=== PATIENT | female | born 1965 | race Caucasian/White ===

== ENCOUNTER → 2016-06-02 | Day surgery (SDC) | payer OTHER ==
[~2016-06-02] MED LIST: ANTIOXIDANT PO; ASPIRIN PO; B COMPLEX1 CA1 PO; B-COMPLEX PO; BALANCED B-501 CAP PO; BENADRYL PO; BENADRYL25 M3 PO; BENTYL20 MG PO; BUSPAR15 M1 DOB; CALCIUM 500 + D1 TAB PO; CALCIUM 500 +1 EAC2 PO; CERTAGEN PO; CLARITIN10 M2 PO; CLARITIN10 M3 PO; COD LIVER OIL; FISH OIL 1,0001 CAP PO; FLAX SEED OIL1000 M1 PO; FLAX SEED OIL1000 MG PO; FLAXSEED OIL; FLAXSEED OIL1000 M1 PO; GLUCOSAMINE CHO1 CA2 PO; GLUCOSAMINE CHOND; MULTI VITAMIN1 EACH PO; MULTI-VITAMIN1 EAC1 PO; MULTIVITAMINS W1 TAB PO; NEXIUM 24HR20 MG PO; NEXIUM PO; PREVACID PO; PRILOSEC PO; VIT B-12 PO; VITAMIN B122500 MCG PO; VITAMIN C PO; ZINC50 M1 PO; ZOLOFT PO; ZOLOFT100 MG PO
--- NOTE | ~2016-06-02 | OR ---
Unit #: [id number] #: [id number] Patient: MARA WEIR [id number] [address] [address] [id number] O MR#: [id number] NAME: MARA WEIR ROOM: Date of Procedure: 06/02/2016 Admission Date: 06/02/2016 Surgeon: Kit Ureña M.D. : 1965 Attending Physician: Kit Ureña M.D. Primary Care Physician: Carlos Quinones M.D. OPERATIVE REPORT PROCEDURE PERFORMED Esophagogastroduodenoscopy with biopsies. INDICATIONS FOR PROCEDURE The patient with chronic GERD symptoms, history of Osman esophagus, symptoms have been worsening lately. MEDICATIONS Monitored anesthesia. POSTOPERATIVE FINDINGS 1. Hiatal hernia along with significant esophagitis, multiple ulcers as well as small segment Osman esophagus. Biopsies taken. 2. Multiple Alejandro ulcers seen in the hiatal hernia sac. 3. Chronic gastritis, biopsies taken. 4. Large submucosal nodule in the gastric antrum, freely mobile, could be GIST. PLAN 1. PPI therapy. 2. Avoid NSAIDs. 3. EUS to be planned. DESCRIPTION OF PROCEDURE The patient was explained of the procedure, risks, and benefits along with the risks and benefits of anesthesia. She was brought to the endoscopy room. Propofol anesthesia was given. Bite block was placed. The scope was passed down the mouth into the esophagus, stomach, duodenum, and distal duodenum. Findings as described. Biopsies taken. Gently, I pulled the scope out of the patient's mouth. She tolerated it well. Dictated by... Rissa Ross/angelo TD: 06/02/2016 23:04 JOB #: [id number] Unit #: [id number] #: [id number] Patient: MARA WEIR OPERATIVE REPORT X Kit Ureña MD PROCEDURE OPERATIVE NOTE
== END | disposition home or self-care (01) ==
LOC: COPS 07:47
DX: K29.50 Unspecified chronic gastritis without bleeding (principal); K21.0 Gastro-esophageal reflux disease with esophagitis; K44.9 Diaphragmatic hernia without obstruction or gangrene; K22.70 Barrett's esophagus without dysplasia; J45.909 Unspecified asthma, uncomplicated; Z98.41 Cataract extraction status, right eye; Z98.42 Cataract extraction status, left eye; Z98.51 Tubal ligation status; Z79.899 Other long term (current) drug therapy
CPT/HCPCS: 88305; 88312

== ENCOUNTER → 2016-08-02 | Outpatient (CLI) | payer OTHER ==
--- NOTE | ~2016-08-02 | US5 ---
[facility] A Service of [facility] RADIOLOGY TEXT RESULTS PATIENT: MARA WEIR LOCATION: [facility] : 61 UNIT #: [id number] AGE: [address]: SYLVIA GRACE APRN SEX: F ORDER DR: [id number] [address] [address] [id number] O MR#: [id number] Acc #: [id number] NAME: MARA WEIR. : 1965 SEX: F STUDY DATE/TIME: 08/02/2016 11:30 UNIT: SG ROOM: STUDY DESCRIPTION: US Abdominal Complete Attending Physician: Sylvia Grace Aprn Referring Physician: Sylvia Grace Aprn Ordering Physician: Sylvia Grace Aprn Primary Care Physician: Kaitlynn Lynn M.D. MEDICAL IMAGING REPORT This report is preliminary unless electronic signature is present. EXAM Abdominal ultrasound. INDICATION Abdominal pain for 2 weeks. TECHNIQUE Weeks-scale, color Doppler, and spectral Doppler waveform analysis was performed through the abdomen. FINDINGS Visualized portions of the pancreas appear normal. Liver is homogeneous in echotexture. No focal hepatic lesions are seen and it measures within normal size limits. There is no intra or extrahepatic biliary dilatation. Main portal vein is patent with hepatopetal flow. Gallbladder does not contain any stones or sludge and there is no gallbladder wall thickening or pericholecystic fluid. Both kidneys are normal in appearance with no solid or cystic renal masses seen and no hydronephrosis identified. Abdominal aorta measures within normal size limits. There is limited visualization of the spleen. IMPRESSION No obvious acute abnormality. Limited visualization of the spleen. Dictated by... Olga Tobar M.D. THIS IS AN ELECTRONICALLY VERIFIED REPORT Olga Tobar M.D. at 08/04/2016 7:54 AM AFF/tmw [facility] A Service [facility] RADIOLOGY TEXT RESULTS PATIENT: MARA WEIR LOCATION: [facility] : 61 UNIT #: [id number] AGE: [address]: SYLVIA GRACE APRN SEX: F ORDER DR: TD: 08/02/2016 16:14 JOB #: [id number] MEDICAL IMAGING REPORT Page 1 of 1
== END | disposition home or self-care (01) ==
LOC: SGUS 11:16
DX: R10.9 Unspecified abdominal pain (principal)
CPT/HCPCS: 76700

== ENCOUNTER → 2016-08-12 | Outpatient (CLI) | payer OTHER ==
--- NOTE | ~2016-08-12 | CT2 ---
[facility] A Service [facility] RADIOLOGY TEXT RESULTS PATIENT: MARA WEIR LOCATION: [facility] : 61 UNIT #: [id number] AGE: [address]: Pedro Luis Lynn MD SEX: F ORDER DR: [id number] [place] [address] [id number] O MR#: [id number] Acc #: [id number] NAME: MARA WEIR : 1965 SEX: F STUDY DATE/TIME: 08/12/2016 16:34 UNIT: [facility] ROOM: STUDY DESCRIPTION: CT Abd and Pelv W Cont Attending Physician: Pedro Luis Lynn M.D. Referring Physician: Pedro Luis Lynn M.D. Ordering Physician: Pedro Luis Lynn M.D. Primary Care Physician: Kaitlynn Lynn M.D. MEDICAL IMAGING REPORT This report is preliminary unless electronic signature is present. EXAM CT abdomen and pelvis with contrast INDICATIONS Left-sided abdominal pain since July of [address] Contrast-enhanced CT of the abdomen and pelvis. This CT exam was performed with one or more of the following radiation dose reduction techniques: automatic control, adjustment of mA and/or kV according to patient size, and iterative reconstruction. COMPARISON 10/15/2010 FINDINGS ABDOMEN WITH CONTRAST: The included lung bases are clear. The liver spleen kidneys adrenal glands pancreas gallbladder are unremarkable. Moderate sized hiatal hernia. Bowel loops nondilated. There are a few uncomplicated sigmoid diverticula. Moderate colonic stool burden. PELVIS WITH CONTRAST: No pelvic mass or fluid. No aggressive appearing bone lesion. IMPRESSION 1. No acute findings in the abdomen or pelvis. 2. Moderate sized hiatal hernia. 3. Moderate colonic stool burden with scattered uncomplicated sigmoid diverticula. [facility] A Service [facility] RADIOLOGY TEXT RESULTS PATIENT: MARA WEIR LOCATION: [facility] : 61 UNIT #: [id number] AGE: [address]: Pedro Luis Lynn MD SEX: F ORDER DR: Dictated by... Enrique Barriga M.D. THIS IS AN ELECTRONICALLY VERIFIED REPORT Enrique Barriga M.D. at 08/17/2016 7:14 AM JOHNNA/guru TD: 08/13/2016 07:21 JOB #: [id number] MEDICAL IMAGING REPORT Page 1 of 1
== END | disposition home or self-care (01) ==
LOC: CCAT 08-11 11:00 → SCT 15:40 → CCAT 16:00 → SCT 16:00
DX: R10.9 Unspecified abdominal pain (principal); K44.9 Diaphragmatic hernia without obstruction or gangrene; K57.30 Diverticulosis of large intestine without perforation or abscess without bleeding
CPT/HCPCS: 74177; Q9967